=== PATIENT | male | born 1995 ===

== ENCOUNTER 2017-01-24 03:20 | Observation (INO) | payer BC ==
[2017-01-24 03:28] VITALS: RESP 18; TEMP 97.8
--- NOTE | 2017-01-24 05:33 | ED PDOC ---
HPI: Psych/Substance Abuse Time Seen by Provider: 01/24/17 03:36 Chief Complaint (Nursing): Alcohol Ingestion Chief Complaint (Provider): Alcohol Ingestion History Per: Patient History/Exam Limitations: intoxication Onset/Duration Of Symptoms: Mins (prior to arrival) Current Symptoms Are (Timing): Still Present Additional Complaint(s): Cedirck Patel is a 21 year old male who presents to the emergency department via [facility] department for an evaluation of alcohol intoxication after patient was found in the service car driver's seat of unknown vehicle prior to arrival. Denied drug use or injury. PMD: none provided Past Medical History Reviewed: Nursing Documentation, Vital Signs Vital Signs: Last Vital Signs Temp 97.8 F 01/24/17 03:25 Pulse 123 H 01/24/17 03:25 Resp 18 01/24/17 03:25 BP 124/87 01/24/17 03:25 Pulse Ox 100 01/24/17 03:25 - Family History Family History: States: Unknown Family Hx - Social History Current smoker - smoking cessation education provided: No Alcohol: Occasional Drugs: Denies - Allergies Allergies/Adverse Reactions: Allergies Allergy/AdvReac Type Severity Reaction Status Date / Time No Known Allergies Allergy Verified 01/24/17 03:25 Review of Systems Review Of Systems: ROS cannot be obtained secondary to pt's inabilty to answer questions. (intoxicated) Constitutional: Negative for: Other (injuries) Physical Exam - Reviewed Nursing Documentation Reviewed: Yes Vital Signs Reviewed: Yes - Physical Exam Appears: Positive for: Well (but intoxicated), Non-toxic, No Acute Distress Head Exam: Positive for: ATRAUMATIC, NORMAL INSPECTION, NORMOCEPHALIC Cardiovascular/Chest: Negative for: Chest Non Tender Respiratory: Positive for: Normal Breath Sounds. Negative for: Decreased Breath Sounds, Crackles, Rales, Rhonchi, Wheezing, Respiratory Distress Gastrointestinal/Abdominal: Positive for: Normal Exam, Bowel Sounds, Soft. Negative for: Tenderness Neurologic/Psych: Positive for: Alert - ECG O2 Sat by Pulse Oximetry: 100 (RA) Pulse Ox Interpretation: Normal Medical Decision Making Medical Decision Making: Initial Impression: ETOH intoxication Initial Plan: * Accucheck * Admit to hospital Time: 0530 --Upon provider reevaluation patient, is feeling alert, clinically sober and requires no further treatment in the ED at this time. Patient will be discharged to police custody. Counseling was provided and all questions were answered regarding diagnosis. There is agreement to discharge plan. Return if symptoms persist or worsen. Clinical Impression: Alcohol abuse Scribe Attestation: Documented by Alma Odell, acting as a scribe for Roman Martin MD. Provider Scribe Attestation: All medical record entries made by the Scribe were at my direction and personally dictated by me. I have reviewed the chart and agree that the record accurately reflects my personal performance of the history, physical exam, medical decision making, and the department course for this patient. I have also personally directed, reviewed, and agree with the discharge instructions and disposition. ED OBSERVATION Date of observation admission: 01/24/17 Time of observation admission: 03:57 - Observation admission statement Patient is being placed in observation because:: ETOH intoxication - Goals of Observation Goals of observation are:: clinical sobriety - Progress Note Progress Note: Time: 0530 --Patient is resting comfortably with stable vital signs. Disposition - Clinical Impression Clinical Impression: Alcohol abuse - Patient ED Disposition Is Patient to be Admitted: No Counseled Patient/Family Regarding: Diagnosis - Disposition Disposition: Discharged/Transfer to Law Enforcement Disposition Time: 05:30 Condition: STABLE
[2017-01-24 05:48] VITALS: BP 113/59; PULSE 92; O2SAT 99
== END 2017-01-24 05:48 | disposition home or self-care (01) ==
LOC: H.ER 03:20 → H.EROBSV 03:57
PROVIDERS: ADMIT Emergency Medicine; ATTEND Emergency Medicine
DX: F10.129 Alcohol abuse with intoxication, unspecified (principal); Y90.7 Blood alcohol level of 200-239 mg/100 ml
CPT/HCPCS: 99282; G0378; G0480